=== PATIENT | male | born 1995 | race Caucasian/White ===

== ENCOUNTER 2020-07-21 19:36 | Emergency (ER) | payer MEDICAID, OTHER ==
--- NOTE | 2020-07-22 00:37 | EDM.PDOC ---
ED HPI GENERAL MEDICAL PROBLEM - General Chief Complaint: ENT Problem Stated Complaint: THROAT IRRITATION/GLASS SWALLOWED Time Seen by Provider: 07/21/20 23:58 Source of Information: Reports: Patient History Limitations: Reports: No Limitations - History of Present Illness INITIAL COMMENTS - FREE TEXT/NARRATIVE: patient presents to the ER due to concern about possible swallowing piece of glass on Monday morning. he states he was making/eating pizza, noticed his marijuana pipe which is glass was broken. then when starting to eat pizza felt something in throat/ashy taste followed immediatly by dry heaves/vomiting of mucous (he did not find anything in emesis suggestive of glass). since that time he has had sore scratchy throat but has not hindered him from eating/drink ing. he came to the ER to have it checked out to be sure PMH/Meds--denies NKDA tob--former, now vapes etoh--rare drugs--marijuana Onset Date: 07/20/20 Throat Pain Score (Numeric/FACES): 4 - Related Data Allergies Allergy/AdvReac Type Severity Reaction Status Date / Time No Known Allergies Allergy Verified 07/21/20 21:30 Home Meds: Home Meds NK [No Known Home Meds] 07/21/20 [History] Past Medical History Musculoskeletal History: Reports: Fracture Social & Family History - Tobacco Use Tobacco Use Status *Q: Current Every Day Tobacco User Years of Tobacco use: 4 Packs/Tins Daily: 1 - Caffeine Use Caffeine Use: Reports: Energy Drinks, Soda - Recreational Drug Use Recreational Drug Use: Yes Recreational Drug Type: Reports: Marijuana/Hashish Recreational Drug Use Frequency: Daily ED ROS GENERAL - Review of Systems Review Of Systems: Comprehensive ROS is negative, except as noted in HPI. HEENT: Reports: Throat Pain ED EXAM, GENERAL - Physical Exam Exam: See Below Exam Limited By: No Limitations General Appearance: Alert, WD/WN, No Apparent Distress Eye Exam: Bilateral Eye: EOMI, Normal Inspection Ears: Normal External Exam, Hearing Grossly Normal Nose: Normal Inspection Throat/Mouth: Normal Inspection, Normal Lips, Normal Teeth, Normal Gums, Normal Oropharynx, Normal Voice, No Airway Compromise Head: Atraumatic, Normocephalic Neck: Normal Inspection, Supple, Non-Tender, Full Range of Motion Respiratory/Chest: No Respiratory Distress, Lungs Clear, Normal Breath Sounds, No Accessory Muscle Use, Chest Non-Tender Cardiovascular: Normal Peripheral Pulses, Regular Rate, Rhythm, No Murmur. No: No Edema GI/Abdominal: Normal Bowel Sounds, Soft, Non-Tender (Male) Exam: Deferred Rectal (Males) Exam: Deferred Back Exam: Normal Inspection Extremities: Normal Inspection, Normal Range of Motion, Normal Capillary Refill Neurological: Alert, Oriented, Normal Cognition, No Motor/Sensory Deficits Psychiatric: Normal Affect, Normal Mood Skin Exam: Warm, Dry, Intact, Normal Color, No Rash Course - Vital Signs Text/Narrative:: discussed with patient today's ER findings on exam is unremarkable posterior oropharynx changes, discussed with patient that there is no way to x-ray for glass but given his history and activities over the last 2 days it is unlikely that he has glass in his esophagus or throat at this point even if he did he may have a sore throat from dry heaving and vomiting recommend community continued monitoring at home liquid to soft diet follow-up with primary care provider to have further concerns verbalized understanding agreement with plan of care ready for discharge Last Recorded V/S: Last Vital Signs Temp 96.8 F L 07/21/20 21:32 Pulse 53 L 07/21/20 21:32 Resp 14 07/21/20 21:32 BP 94/47 L 07/21/20 21:32 Pulse Ox 100 07/21/20 21:32 Departure - Departure Time of Disposition: 00:37 Disposition: Home, Self-Care 01 Condition: Good Clinical Impression: Sore throat - Discharge Information *PRESCRIPTION DRUG MONITORING PROGRAM REVIEWED*: Not Applicable *COPY OF PRESCRIPTION DRUG MONITORING REPORT IN PATIENT LUIS: Not Applicable Instructions: Sore Throat, [id number] Referrals: PCP,None [Primary Care Provider] - Additional Instructions: You may try salt water gargles for comfort, mixed salt in warm water so that it will dissolve and gargle and spit out You may use ibuprofen or acetaminophen per [id number] label for any pain or discomfort It is recommended that you try a liquid to soft diet until pain is improved or resolved Continued concerns follow-up with your family physician/primary care provider for further evaluation Sepsis Event Note (ED) - Evaluation Sepsis Screening Result: No Definite Risk - Focused Exam Vital Signs: Vital Signs Temp Pulse Resp BP Pulse Ox 07/21/20 21:32 96.8 F L 53 L 14 94/47 L 100
== END 2020-07-22 00:45 | disposition home or self-care (01) ==
LOC: JP.ED 19:36
DX: J02.9 Acute pharyngitis, unspecified (principal)
CPT/HCPCS: 99282